=== PATIENT | female | born 1980 | race Caucasian/White ===

== ENCOUNTER 2018-06-12 04:18 | Inpatient (IN) | payer BC ==
[2018-06-12] MEDS ORDERED: Sodium Citrate/Citric Acid* 15 ML UDC PO ONE (04:24)
[2018-06-12] MEDS ORDERED: Lidocaine 1%* 5 ML VIAL ONE (04:33)
[2018-06-12 04:51] LABS: ABS Basophils 0 10^3/ul (0-0.2); ABS Eosinophils 0.2 10^3/ul (0-0.6); ABS Lymphocytes 1.5 10^3/ul (1.0-4.8); ABS Monocytes 0.6 10^3/ul (0-0.8); ABS Neutrophils 6.4 10^3/ul (1.5-7.7); ABS Nucleated RBC 0 10^3/ul; Hematocrit 37 % (35-47); Hemoglobin 12.7 g/dl (12.0-16.0); Lymphocyte % 17.1 % (25-47); Mean Corpuscular HGB Conc 34 g/dl (31-36); Mean Corpuscular Hemoglobin 32 pg (27-31); Mean Corpuscular Volume 93 fL (80-97); Mean Platelet Volume 7.4 fL (7.4-10.4); Nucleated Red Blood Cells % 0; Platelet Count 236 10^3/ul (150-450); Red Blood Count 3.98 10^6/ul (4.00-5.40); Red Cell Distribution Width 14 % (10.5-15); White Blood Count 8.7 10^3/ul (3.5-10.8)
[2018-06-12] MEDS ORDERED: Sodium Citrate/Citric Acid* 15 ML UDC ONE (04:57)
[2018-06-12] MEDS ORDERED: ceFOXitin 2 GM IVPREMIX* 2 GM/50 ML BAG ONE (04:58)
[2018-06-12] MEDS ORDERED: Naloxone* 0.4 MG/ML 1 ML VIAL IV PRN ×2 (05:29→06:57)
[2018-06-12] MEDS ORDERED: Morphine PF AMP (0.5MG/ML)* 5 MG/10 ML AMP ONE (05:36)
[2018-06-12] MEDS ORDERED: OXYTOCIN* 10 UNITS/ML 1 ML VIAL ONE (06:27)
[2018-06-12] MEDS ORDERED: Bupivacaine-MPF SPINAL* 7.5 MG/ML - 2ML AMP ONE (06:27)
[2018-06-12] MEDS ORDERED: Ondansetron INJ* 2 MG/ML VIAL IV PRN (06:57)
[2018-06-12] MEDS ORDERED: Nalbuphine* 10 MG/ML 1 ML VIAL IV PRN (06:57)
[2018-06-12] MEDS ORDERED: Dibucaine 1% 28.35 GM TUBE PR PRN (07:00)
[2018-06-12] MEDS ORDERED: Zolpidem TAB* 5 MG PO PRN (07:00)
[2018-06-12] MEDS ORDERED: Glycerin ADULT SUPP PR PRN (07:00)
[2018-06-12] MEDS ORDERED: Ibuprofen TAB* 400 MG PO SCH (07:00)
[2018-06-12] MEDS ORDERED: Witch Hazel PAD* JAR TOPICAL PRN (07:00)
[2018-06-12] MEDS ORDERED: Oxytocin in LR* 20 UNITS/1,000 ML BAG IVPB SCH (07:00)
[2018-06-12] MEDS ORDERED: ceFOXitin 2 GM IVPREMIX* 2 GM/50 ML BAG IVPB ONE (07:00)
[2018-06-12] MEDS ORDERED: oxyCODONE/Acetamin 5/325 MG* TAB ONE (07:04)
[2018-06-12] MEDS: oxyCODONE/Acetamin 5/325 MG* TAB PO PRN ×3 (07:06→22:39)
[2018-06-12] MEDS: Docusate CAP* 100 MG PO SCH ×3 (09:40→19:37)
[2018-06-12] MEDS: Simethicone TAB* 80 MG TAB.CHEW PO SCH ×4 (09:40→19:37)
[2018-06-12] MEDS: Sertraline* 100 MG TAB PO SCH (10:23)
[2018-06-12] MEDS: Ibuprofen TAB* 400 MG PO SCH ×3 (11:37→22:05)
--- NOTE | 2018-06-12 22:01 | OP ---
DATE OF OPERATION: 06/12/18 - ROOM #101 DATE OF : 82 SURGEON: Jasper Lockwood MD FITTER UP: Jeremías Noe CNM. ANESTHESIA: Spinal. PRE-OP DIAGNOSIS: Previous section, desires permanent sterilization. POST-OP DIAGNOSIS: Previous section, desires permanent sterilization. OPERATIVE PROCEDURE: Low transverse section and bilateral tubal ligation using fimbriectomy. COMPLICATIONS: None. FINDINGS: This is a 37-year-old who had a prior section for breech as well as vaginal after , after that she desired an elective repeat section. At the time of , she had normal-appearing uterus, fallopian tubes, and ovaries. She has a viable female. Apgars were 9 and 9, weight was 7 pounds 6 ounces. DESCRIPTION OF PROCEDURE: The patient identified, procedure identified as a low transverse section. The patient was taken to the operating room, prepped and draped in the usual fashion in the left lateral recumbent position under spinal anesthesia. A Pfannenstiel incision was made through the old incision, carried down through fat, fascia and peritoneum. A bladder flap was created via sharp and blunt dissection. Transverse incision was made in the lower uterine segment, extended laterally using blunt dissection. The was delivered through the incision with ease. There was a nuchal cord x1, which was looped off and the cord was doubly clamped and cut. The infant was handed to the awaiting medical lab tech instructor. Cord blood was obtained. Placenta delivered spontaneously. The uterus was wiped out with a wet lap sponge. The uterine incision was then closed using 0 Polysorb in a running fashion. A second layer was used to imbricate the first layer. Good hemostasis was verified. The right fallopian tube was grasped with a fimbriated end and cross clamped with a Janette. The tube was then ligated using 0 Polysorb in a simple fashion x2 and the fimbria was excised. Same procedure was carried out on the left, following it out to its fimbriated end. Good hemostasis was verified. The uterus was placed back into the abdominal cavity. The gutters were wiped out with a wet lap sponge. The tubal ligation sites were inspected, found to be hemostatic. The uterine incision site was also inspected, found to be hemostatic. The peritoneum was then closed using the 3-0 Polysorb in a running fashion. Good hemostasis achieved in the subrectus layers. The fascia was closed using 0 Polysorb in a running fashion. Hemostasis achieved in the subcu. Copious irrigation was utilized and suctioned out. The skin was closed with 4-0 Monocryl in a subcuticular fashion. Good hemostasis and skin was reapproximated as well with Steri-Strips and Mastisol. All sponge and instrument counts were correct. The patient returned to the recovery room in stable condition. [id number]/[facility] #: [id number] ALEKSANDER
[2018-06-12] MEDS ORDERED: oxyCODONE/Acetamin 5/325 MG* TAB PO PRN (22:57)
[2018-06-12] MEDS ORDERED: Acetaminophen TAB* 325 MG PO PRN (22:57)
[2018-06-13] MEDS: oxyCODONE/Acetamin 5/325 MG* TAB PO PRN ×5 (04:27→23:41)
[2018-06-13 06:09] LABS: ABS Basophils 0 10^3/ul (0-0.2); ABS Eosinophils 0.1 10^3/ul (0-0.6); ABS Lymphocytes 0.9 10^3/ul (1.0-4.8); ABS Monocytes 0.5 10^3/ul (0-0.8); ABS Neutrophils 8.1 10^3/ul (1.5-7.7); ABS Nucleated RBC 0 10^3/ul; Eosinophil % 1.2 % (0-6); Hematocrit 31 % (35-47); Hemoglobin 10.6 g/dl (12.0-16.0); Lymphocyte % 9.7 % (25-47); Mean Corpuscular HGB Conc 34 g/dl (31-36); Mean Corpuscular Hemoglobin 32 pg (27-31); Mean Corpuscular Volume 94 fL (80-97); Mean Platelet Volume 7.3 fL (7.4-10.4); Nucleated Red Blood Cells % 0.1; Platelet Count 201 10^3/ul (150-450); Red Blood Count 3.29 10^6/ul (4.00-5.40); Red Cell Distribution Width 14 % (10.5-15); White Blood Count 9.7 10^3/ul (3.5-10.8)
[2018-06-13] MEDS: Ibuprofen TAB* 600 MG PO PRN ×3 (08:07→23:41)
[2018-06-13] MEDS: Docusate CAP* 100 MG PO SCH ×3 (08:07→19:25)
[2018-06-13] MEDS: Simethicone TAB* 80 MG TAB.CHEW PO SCH ×4 (08:08→19:25)
[2018-06-13] MEDS: Sertraline* 100 MG TAB PO SCH (08:08)
[2018-06-13] MEDS ORDERED: Ferrous Gluconate TAB* 324 MG TAB PO SCH (09:00)
[2018-06-14] MEDS: oxyCODONE/Acetamin 5/325 MG* TAB PO PRN ×2 (03:56→22:11)
[2018-06-14] MEDS: Ibuprofen TAB* 600 MG PO PRN ×3 (05:47→20:05)
[2018-06-14] MEDS: Docusate CAP* 100 MG PO SCH ×3 (08:37→20:05)
[2018-06-14] MEDS: Simethicone TAB* 80 MG TAB.CHEW PO SCH ×4 (08:37→20:04)
[2018-06-14] MEDS: Sertraline* 100 MG TAB PO SCH (08:38)
[2018-06-15] MEDS: Ibuprofen TAB* 600 MG PO PRN (06:20)
[2018-06-15 08:02] VITALS: BP 121/71
[2018-06-15] MEDS: Docusate CAP* 100 MG PO SCH (08:26)
[2018-06-15] MEDS: Sertraline* 100 MG TAB PO SCH (08:26)
[2018-06-15] MEDS: Simethicone TAB* 80 MG TAB.CHEW PO SCH (08:26)
[2018-06-15] MEDS: oxyCODONE/Acetamin 5/325 MG* TAB PO PRN (08:57)
== END 2018-06-15 11:51 | disposition home or self-care (01) | DRG 540 ==
LOC: MCHOBOUT 04:18 → MCHOB 04:35
PROVIDERS: ADMIT Obstetrics & Gynecology; ATTEND Obstetrics & Gynecology
PROC: 4A1HXCZ Monitoring of Products of Conception, Cardiac Rate, External Approach (ICD-10-PCS; 2018-06-12)
PROC: 0UB70ZZ Excision of Bilateral Fallopian Tubes, Open Approach (ICD-10-PCS; 2018-06-12)
PROC: 10D00Z1 Extraction of Products of Conception, Low, Open Approach (ICD-10-PCS; principal; 2018-06-12 05:40)
DX: O34.211 Maternal care for low transverse scar from previous cesarean delivery (principal); O99.344 Other mental disorders complicating childbirth; F41.9 Anxiety disorder, unspecified; F32.9 Major depressive disorder, single episode, unspecified; O77.0 Labor and delivery complicated by meconium in amniotic fluid; O69.81X0 Labor and delivery complicated by cord around neck, without compression, not applicable or unspecified; Z3A.38 38 weeks gestation of pregnancy; Z37.0 Single live birth; Z88.2 Allergy status to sulfonamides; Z91.040 Latex allergy status; Z30.2 Encounter for sterilization
CPT/HCPCS: 36415; 85025; 86850; 86900; 86901; 88302; A9270-GY; J0694; J2590

== ENCOUNTER 2019-02-22 13:38 | Emergency (ER) | payer BC ==
--- NOTE | 2019-02-22 14:24 | ED ---
Neurological HPI - HPI Summary HPI Summary: A 38 y/o female accompanied by family presents to [facility] with a chief complaint of left sided facial weakness and numbness. She says that it has been getting worse over the past week with her weakness and numbness spreading into her left arm. She reports clouded vision in her left eye, but no double vision. She also reports some headaches that have been ongoing, along with some new ear pain, but she denies any rash. She says that her symptoms are worsened when she gets tired. Pt denies any fever, chills, erythema of eyes, sore throat, CP, SOB, cough, abdominal pain, N/V, dysuria, hematuria, myalgia, edema, rash, or dizziness. At triage she rated her pain as a 0/10 in severity. She says that she had a lyme test done last week which was negative. She takes a vitamin. She denies any PMHx and denies a FHx of MS. She denies any difficulties walking. Her last MRI was about 4 years ago, because she could not speak properly at the time. The patient was sent over from Dr. Wilburn. - History of Current Complaint Chief Complaint: EDNeurologicalDeficit Stated Complaint: FACIAL WEAKNESS AND NUMBNESS SENT BY DR DANIELLE CHATTERJEE Time Seen by Provider: 02/22/19 14:11 Hx Obtained From: Patient Hx Last Menstrual Period: THREE YEARS AGO Onset/Duration: Sudden Onset, Started weeks ago, Still Present Timing: Constant Onset Severity: Mild Current Severity: Mild Pain Intensity: 0 Pain Scale Used: 0-10 Numeric Character: Weak, Numbness/Tingling Aggravating: Nothing Alleviating: Nothing Associated Signs and Symptoms: Positive: Weakness, Numbness. Negative: Pain, Nausea/Vomiting, Fever, Chest Pain, Shortness of Breath - Allergy/Home Medications Allergies/Adverse Reactions: Allergies Allergy/AdvReac Type Severity Reaction Status Date / Time Sulfa (Sulfonamide Allergy Intermediate Rash Verified 06/12/18 08:11 Antibiotics) latex Allergy Rash Verified 02/22/19 13:43 Home Medications: Home Medications Calcium Carbonate CHEW TAB* [Tums*] 500 mg PO QID PRN 02/22/19 [History Confirmed 02/22/19] Cholecalciferol (Vitamin D3) [Vitamin D3] 1,000 unit PO DAILY 02/22/19 [History Confirmed 02/22/19] Multivitamins/Minerals TAB* [Theragran/minerals TAB*] 1 tab PO DAILY 02/22/19 [ History Confirmed 02/22/19] Omeprazole CAP (NF) [Prilosec CAP* 20 MG] 20 mg PO DAILY 02/22/19 [History Confirmed 02/22/19] Sertraline* [Zoloft*] 100 mg PO DAILY 02/22/19 [History Confirmed 02/22/19] PMH/Surg Hx/FS Hx/Imm Hx Endocrine/Hematology History: Denies: Hx Diabetes, Hx Thyroid Disease Cardiovascular History: Denies: Hx Hypertension Respiratory History: Denies: Hx Asthma, Hx Chronic Obstructive Pulmonary Disease (COPD) GI History: Denies: Hx Ulcer Psychiatric History: Reports: Hx Anxiety, Hx Depression - Surgical History Surgery Procedure, Year, and Place: 2010 Infectious Disease History: No Infectious Disease History: Denies: Hx Clostridium Difficile, Hx Hepatitis, Hx Human Immunodeficiency Virus (HIV), Hx of Known/Suspected MRSA, Hx Shingles, Hx Tuberculosis, Hx Known/ Suspected VRE, Hx Known/Suspected VRSA, History Other Infectious Disease, Traveled Outside the [place] in Last 30 Days - Family History Known Family History: Positive: Other - no FHx of MS - Social History Alcohol Use: Rare Substance Use Type: Reports: None Smoking Status (MU): Never Smoked Tobacco Review of Systems Negative: Fever, Chills Positive: Other - positive: clouded vision, negative: double vision. Negative: Erythema Positive: Ear Ache. Negative: Sore Throat Negative: Chest Pain Negative: Shortness Of Breath, Cough Negative: Abdominal Pain, Vomiting, Nausea Negative: dysuria, hematuria Negative: Myalgia, Edema Negative: Rash Neurological: Negative - dizziness Positive: Headache, Weakness - left sided facial, radiating to left arm, Numbness - left sided facial, radiating to left arm All Other Systems Reviewed And Are Negative: Yes Physical Exam - Summary Physical Exam Summary: Constitutional: Well-developed, Well-nourished, Alert. (-) Distressed Skin: Warm, Dry HENT: Normocephalic; Atraumatic Eyes: Conjunctiva normal Neck: Musculoskeletal ROM normal neck. (-) JVD, (-) Stridor, (-) Tracheal deviation Cardio: Rhythm regular, rate normal, Heart sounds normal; Intact distal pulses; The pedal pulses are 2+ and symmetric. Radial pulses are 2+ and symmetric. (-) Murmur Pulmonary/Chest wall: Effort normal. (-) Respiratory distress, (-) Wheezes, (-) Rales Abd: Soft. (-) Tenderness, (-) Distension, (-) Guarding, (-) Rebound Musculoskeletal: (-) Edema Lymph: (-) Cervical adenopathy Neuro: Alert, Oriented x3, left clinical advisor weakness, upper facial palsy, unable to elevate left eyebrow, smile is symmetric. Psych: Mood and affect Normal Triage Information Reviewed: Yes Vital Signs On Initial Exam: Initial Vitals Temp Pulse Resp BP Pulse Ox 99.2 F 89 18 126/88 97 02/22/19 13:39 02/22/19 13:39 02/22/19 13:39 02/22/19 13:39 02/22/19 13:39 Vital Signs Reviewed: Yes Procedures - Lumbar Puncture Midline Position: Lateral Decubitus Anesthesia Used: 1.0% Lido Spinal Needle Used: 22 Gauge Lumbar Puncture Note: Opening pressure is 13 cms of water, L4-L5 interspace, left lateral decubitus. 22 gauge 3.5 inch needle, betadine prep was used. Used 4mls of 1% lidocaine. Diagnostics - Vital Signs Vital Signs Temp Pulse Resp BP Pulse Ox 02/22/19 13:39 99.2 F 89 18 126/88 97 - Laboratory Result Diagrams: 02/22/19 15:10 02/22/19 15:10 Lab Statement: Any lab studies that have been ordered have been reviewed, and results considered in the medical decision making process. - CT Brain MRI CT Interpretation Completed By: Radiologist Summary of CT Findings: No intracranial mass or hemorrhage is noted. No abnormally enhancing lesions. are noted. ED physician has reviewed this imaging report. Re-Evaluation - Re-Evaluation First Eval Re-Evaluation Time: 18:50 Change: Unchanged Comment: Lumbar puncture procedure Course/Dx - Course Course Of Treatment: A 38 y/o female accompanied by family presents to [facility] with a chief complaint of left sided facial weakness and numbness. She says that it has been getting worse over the past week with her weakness and numbness spreading into her left arm. She reports clouded vision in her left eye , but no double vision. She also reports some headaches that have been ongoing, along with some new ear pain, but she denies any rash. She says that her symptoms are worsened when she gets tired. Pt denies any fever, chills, erythema of eyes, sore throat, CP, SOB, cough, abdominal pain, N/V, dysuria, hematuria, myalgia, edema, rash, or dizziness. At triage she rated her pain as a 0/10 in severity. She says that she had a lyme test done last week which was negative. She takes a vitamin. She denies any PMHx and denies a FHx of MS. She denies any difficulties walking. Her last MRI was about 4 years ago, because she could not speak properly at the time. The patient was sent over from Dr. Wilburn. The physical exam revealed that the patient has left clinical advisor weakness, upper facial palsy, is unable to elevate left eyebrow, smile is symmetric. Blood work and chemistries obtained and are WNL. In the ED course the patient was given Sodium Chloride IV. Brain MRI impression: No intracranial mass or hemorrhage is noted. No abnormally enhancing lesions. are noted. Lumbar puncture was done. See procedure note. CSF results are WNL. Discussed case with Dr. North, who saw the patient in the ED, and recommended having the patient follow up with him in one week. The patient will be discharged and is agreeable with this plan. - Diagnoses Provider Diagnoses: Left-sided weakness - Physician Notifications Discussed Care Of Patient With: Rohit North Time Discussed With Above Provider: 14:40 Instructed by Provider To: MD Will See In ED Discharge - Sign-Out/Discharge Documenting (check all that apply): Patient Departure - TN Patient Received Moderate/Deep Sedation with Procedure: No - Discharge Plan Condition: Stable Disposition: HOME Patient Education Materials: Weakness (ED) Referrals: Rohit North MD [Medical Doctor] - 1 Week Jacqui Wilburn MD [Primary Care Provider] - (2-3 days) Additional Instructions: RETURN TO THE EMERGENCY DEPARTMENT FOR CHANGING OR WORSENING SYMPTOMS Call Dr. North's office if your symptoms worsen. - Attestation Statements Document Initiated by Scribe: Yes Documenting Scribe: Ha Gordon Provider For Whom Scribe is Documenting (Include Credential): Lakhwinder Martinez MD Scribe Attestation: Ha Monson scribed for Lakhwinder Martinez MD on 02/22/19 at 2028. Status of Scribe Document: Ready Consult Consult: At 14:42 Discussed case with central processing technician, who recommend 24 hours of pumping and dumping the breast milk and hydration.
[2019-02-22] MEDS ORDERED: NS 0.9% 1000 ML** 1,000 ML IV ONE (14:42)
[2019-02-22 15:24] LABS: Hematocrit 43 % (35-47); Hemoglobin 14.7 g/dL (12.0-16.0); Mean Corpuscular HGB Conc 34 g/dL (31-36); Mean Corpuscular Hemoglobin 31 pg (27-31); Mean Corpuscular Volume 93 fL (80-97); Mean Platelet Volume 7.6 fL (7.4-10.4); Platelet Count 297 10^3/uL (150-450); Red Blood Count 4.68 10^6 /uL (3.70-4.87); Red Cell Distribution Width 13 % (10-15); White Blood Count 8.4 10^3/uL (3.5-10.8)
[2019-02-22 15:43] LABS: Albumin 4.9 g/dL (3.2-5.2); Albumin/Globulin Ratio 1.6 (1-3); BUN/Creatinine Ratio 21.9 (8-20); C Reactive Protein 2.42 mg/L (<8.01); Calcium 9.9 mg/dL (8.6-10.3); EGFR African American 108.5 (>60); EGFR Non-African American 89.7 (>60); Globulin 3.1 g/dL (2-4); Potassium 3.5 mmol/L (3.5-5.0); Total Bilirubin 0.5 mg/dL (0.2-1.0)
[2019-02-22] MEDS ORDERED: Gadoteridol* (CONTRAST) 279.3 MG/ML 10 ML IV ONE (16:00)
--- NOTE | 2019-02-22 16:10 | CONS ---
NEUROLOGY CONSULTATION DATE OF CONSULT: 02/22/2019 - EMERGENCY DEPT PATIENT OF: Dr. Martinez and Dr. Wilbrun. HISTORY OF PRESENT ILLNESS: This is a 38-year-old, right-handed woman. I was asked to evaluate her for focal neurological deficits. Of note, she had four years ago an episode of aphasia with a normal MRI scan. She has no headache at that time, but it was attributed to migraine at that point. She was then without any neurological symptoms and just had her third baby eight months ago. A few months after that, she developed some blurriness in her left eye. This was a monocular visual blurring that has stayed until the present time, but has not gotten worse. In the past week, she has some left ptosis and has developed in the past few days left facial droop, as well as numbness in the left cheek that has spread into her left chest and her left upper arm. She has had some weakness in the left arm as well, but no change in gait. She notes that her left hand is a little bit clumsy. She plays piano seriously recreationally and she is struggling to coordinate her left hand. She has had no fevers, chills, no rash. Her symptoms are worse when she gets tired. There is no family history for MS disease. She has had a Lyme titer done last week which was negative. She is in good general health. PAST MEDICAL HISTORY: She has a history of anxiety and depression. MEDICATIONS: Prilosec 20 mg daily and Zoloft 100 mg daily. ALLERGIES: She is ALLERGIC TO SULFA AND LATEX. FAMILY HISTORY: There is no family history for multiple sclerosis. SOCIAL HISTORY: She does not smoke, drink or use drugs. REVIEW OF SYSTEMS: Negative for all 14 spheres, other than the HPI. PHYSICAL EXAM: General: She is alert and oriented with normal speech and comprehension. Vital Signs: Temperature 99.2, pulse 89, respirations 18, blood pressure 126/88. Neurological: Cranial nerve II through XII were abnormal for a mild left facial droop. Some subjective numbness in the left face and left upper chest and arm. She had full extraocular movements. Discs were sharp bilaterally and she had some blurriness in her left eye in all underwood and her right eye was intact. 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 She had a left pronator drift that was mild. She had slight clumsiness in her left hand and manipulations, but [id number] was intact. Reflexes were 2 and equal, toes were downgoing. Neck was supple. There is no _ . Chest is clear. Cardiovascular: Regular rate and rhythm. Abdomen is soft with positive bowel sounds. DIAGNOSTIC STUDIES/LAB DATA: There are no labs currently and no other testing at this point. IMPRESSION: Chelly has a history of aphasia four years ago and monocular visual loss going on for the past couple of months time. More recently is a progressive left-sided weakness over the past several days to weeks and progressive numbness. This is not the story of a stroke-like presentation, but the multifocal nature of her complaint over time suggests something like demyelinating disease. PLAN: We are going to get an MRI scan with and without contrast and she is going to hold off for 24 hours. Depending on the results of the MRI scan, further testing may be necessary, such as a spinal tap. I discussed this with her in detail. We will be getting blood work also, the exact blood work will depend on the results of the MRI scan. Thank you for sharing her case. [id number]/[facility] #: [id number] ALEKSANDER
[2019-02-22 19:18] LABS: Body Fluid Source Cerebral Spinal
[2019-02-22 19:33] LABS: CSF Glucose 63 mg/dL (40-70)
[2019-02-22 20:44] VITALS: BP 112/77
[2019-02-24 14:59] LABS: CSF VDRL Negative (Negative)
== END 2019-02-22 20:43 | disposition home or self-care (01) ==
LOC: ED 13:38
DX: R53.1 Weakness (principal); F41.9 Anxiety disorder, unspecified; F32.9 Major depressive disorder, single episode, unspecified; Z79.899 Other long term (current) drug therapy; Z88.2 Allergy status to sulfonamides; Z91.040 Latex allergy status
CPT/HCPCS: 36415; 62270; 70553; 80053; 82945; 83916; 84157; 85027; 86140; 86592; 86618; 87070; 87205; 89051; 96360; 99283; A9579

== ENCOUNTER 2019-07-06 11:14 | Emergency (ER) | payer BC ==
[2019-07-06 13:10] VITALS: BP 109/65
--- NOTE | 2019-07-06 13:15 | UC ---
Skin Complaint HPI - HPI Summary HPI Summary: 39-year-old female presents with complaints of pain painful, burning, rash to her left back and lateral chest wall. Patient states that she started with the pain and burning 4 days ago. States pain worsens with even light touch including her clothing. 2 days ago she started breaking out in erythematous, vesicular rash to her left scapula and left lateral chest wall below her axilla. Patient has history of chickenpox as a child. Denies fever, chills, changes in soaps, detergents, lotions, cosmetics, medications, diet, or known exposure to environmental irritants. - History of Current Complaint Chief Complaint: UCSkin Time Seen by Provider: 07/06/19 13:12 Stated Complaint: SKIN COMPLAINT Hx Obtained From: Patient Hx Last Menstrual Period: 08/2017 Pain Intensity: 6 - Allergy/Home Medications Allergies/Adverse Reactions: Allergies Allergy/AdvReac Type Severity Reaction Status Date / Time Sulfa (Sulfonamide Allergy Intermediate Rash Verified 07/06/19 13:02 Antibiotics) latex Allergy Rash Verified 07/06/19 13:02 PMH/Surg Hx/FS Hx/Imm Hx Previously Healthy: Yes Psychological History: Depression - Surgical History Surgical History: Yes Surgery Procedure, Year, and Place: 2010 X2. WISDOM TEETH - Family History Known Family History: Positive: Non-Contributory - Social History Occupation: Works From/At Home Lives: With Family Alcohol Use: Rare Substance Use Type: None Smoking Status (MU): Never Smoked Tobacco - Immunization History Most Recent Influenza Vaccination: 05/2018 Most Recent Tetanus Shot: 2009 Most Recent Pneumonia Vaccination: n/a Review of Systems All Other Systems Reviewed And Are Negative: Yes Constitutional: Negative: Fever, Chills Skin: Positive: Other - See HPI Respiratory: Positive: Negative Cardiovascular: Positive: Negative Gastrointestinal: Positive: Negative Genitourinary: Positive: Negative Neurological: Positive: Negative Psychological: Positive: Negative Is Patient Immunocompromised?: No Physical Exam - Summary Physical Exam Summary: GENERAL APPEARANCE: Well developed, well nourished, alert and cooperative, and appears to be in no acute distress. EYES: Conjunctiva clear. No drainage. PERRL, EOM intact. Vision is grossly intact. EARS: External auditory canals and tympanic membranes clear, hearing grossly intact. NOSE: No nasal discharge. THROAT: Pharynx normal No tonsilar inflammation, swelling, exudate, or lesions. Uvula midline. Oral cavity normal. Teeth and gingiva in good general condition. NECK: Neck supple, non-tender without lymphadenopathy. CARDIAC: Normal S1 and S2. No S3, S4 or murmurs. Rhythm is regular. There is no peripheral edema, cyanosis or pallor. Extremities are warm and well perfused. Capillary refill is less than 2 seconds. Peripheral pulses intact. LUNGS: Clear to auscultation without rales, rhonchi, wheezing or diminished breath sounds. ABDOMEN: Positive bowel sounds. Soft, nondistended, nontender. No guarding or rebound. No masses or hepatosplenomegally. SKIN: Skin normal color, texture and turgor. Patches of tender, erythematous, vesicular, dermatomal lesions to the left scapula and left lateral chest wall. Triage Information Reviewed: Yes Vital Signs: Initial Vital Signs Temp 98.8 F 07/06/19 13:04 Pulse 86 07/06/19 13:04 Resp 17 07/06/19 13:04 BP 109/65 07/06/19 13:04 Pulse Ox 98 07/06/19 13:04 Vital Signs Reviewed: Yes Course/Dx - Course Course Of Treatment: 39-year-old female presents with complaints of pain painful, burning, rash to her left back and lateral chest wall. Patient states that she started with the pain and burning 4 days ago. States pain worsens with even light touch including her clothing. 2 days ago she started breaking out in erythematous, vesicular rash to her left scapula and left lateral chest wall below her axilla. Patient has history of chickenpox as a child. Denies fever, chills, changes in soaps, detergents, lotions, cosmetics, medications, diet, or known exposure to environmental irritants. Afebrile. Vital signs stable. Patient's exam significant for patches of tender, erythematous, vesicular, dermatomal lesions to the left scapula and left lateral chest wall consistent with herpes zoster. We'll start her on valacyclovir 1000 mg 3 times a day 7 days. She is to follow-up with her primary care provider in 3-5 days if symptoms are not improving. Anticipatory guidance and warning symptoms were reviewed with the patient. Verbalized understanding and agrees with plan of care. - Differential Diagnoses - Skin Complaint Differential Diagnoses: Cellulitis, Local Allergic Reaction, Poison [place]ika, Poison [place], Tinea, Varicella Zoster - Diagnoses Provider Diagnosis: Herpes zoster Discharge ED - Sign-Out/Discharge Documenting (check all that apply): Patient Departure All imaging exams completed and their final reports reviewed: No Studies - Discharge Plan Condition: Stable Disposition: HOME Prescriptions: Valacyclovir HCl [Valacyclovir] 1,000 mg PO TID 7 Days #21 tablet Patient Education Materials: Shingles (ED) Referrals: Jacqui Wilburn MD [Primary Care Provider] - 3 Days (Follow up in 3-5 days if no improvement in symptoms.) Additional Instructions: Your history and physical are consistent with shingles. We will start she on an antiviral medication to help minimize her symptoms and shorten the duration of symptoms. Be aware that the antiviral is not a cure for shingles. Start valacyclovir 1000 mg 3 times a day for 7 days. Be aware that if you develop blisters that begin to lose you are potentially contagious to others if they were to come in to close contact with the discharge. Pupil most at risk include persons who are unvaccinated or who have never had chickenpox, women, the elderly, or anyone who has a compromised immune system such as someone on chemotherapy. You should avoid close contact with anyone until the lesions have completely crusted over. Take acetaminophen (Tylenol) or ibuprofen (Advil, Motrin) according to directions as needed for pain. Follow-up with your primary care provider in 3-5 days if symptoms are not improving. Seek immediate medical attention if you develop fever greater than 100.5 F, have rapidly spreading redness, severe pain that is not managed with over-the- counter pain medication, or any worsening of symptoms. - Billing Disposition and Condition Condition: STABLE Disposition: Home
== END 2019-07-06 13:38 | disposition home or self-care (01) ==
LOC: UCEAST 11:14
DX: B02.9 Zoster without complications (principal); Z88.2 Allergy status to sulfonamides; Z91.040 Latex allergy status
CPT/HCPCS: 99212; G0463

== ENCOUNTER 2024-06-27 10:59 | Observation (INO) ==
[2024-06-27 11:49] LABS: ABS Eosinophils 0.3 10^3/uL (0.0-0.5); ABS Lymphocytes 0.5 10^3/uL (1.0-4.8); ABS Monocytes 0.6 10^3/uL (0.0-0.9); ABS Neutrophils 8.9 10^3/uL (1.5-7.6); Eosinophil % 2.9 %; Hematocrit 33.8 % (35-45); Hemoglobin 11.6 g/dL (11.5-14.3); Lymphocyte % 4.7 %; Mean Corpuscular Hemoglobin 31.6 pg (27-33); Mean Corpuscular Hgb Conc 34.4 g/dL (31-36); Mean Corpuscular Volume 91.8 fL (80-97); Platelet Count 469 10^3/uL (150-450); Red Blood Count 3.68 10^6/uL (3.63-4.92); Red Cell Distribution Width 12.1 % (12-17); White Blood Count 10.3 10^3/uL (3.8-11.8)
[2024-06-27 12:01] LABS: INR 1.29 (0.85-1.14)
[2024-06-27 12:13] LABS: High Sens Troponin Baseline < 3 pg/mL (<15)
[2024-06-27 12:22] LABS: ALT 15 U/L (7-52); AST 27 U/L (13-39); Albumin 3.6 g/dL (3.2-5.2); Albumin/Globulin Ratio 1.4 (1-3); Alkaline Phosphatase 61 U/L (35-149); Anion Gap 10 mmol/L (2-16); Blood Urea Nitrogen 4 mg/dL (6-24); CO2 Carbon Dioxide 24 mmol/L (22-32); Calcium 8.5 mg/dL (8.6-10.3); Chloride 100 mmol/L (101-111); Creatinine, Serum 0.56 mg/dL (0.51-0.95); Globulin 2.6 g/dL (2-4); Glucose 92 mg/dL (70-100); Potassium 4.2 mmol/L (3.5-5.0); Sodium 134 mmol/L (135-145); Total Bilirubin 0.6 mg/dL (0.2-1.0); Total Protein 6.2 g/dL (6.4-8.9); eGFR CKD-EPI 116.1 (>60)
[2024-06-27] MEDS: Albuterol/Ipratropium NEB.SOL (2.5/0.5 MG) 3 ML NEB.SOLN INH ONE (12:50)
[2024-06-27] MEDS: Dexamethasone IV 4 MG/ML VIAL 1 ml VIAL IV SLOW PU ONE (12:50)
[2024-06-27 13:21] LABS: High Sensitivity Troponin 1 Hr < 3 pg/mL (<15)
[2024-06-27] MEDS: Iohexol 350 (CONTRAST) 500 ML MDV IV ONE (16:31)
[2024-06-27] MEDS: cefTRIAXone 1 gm/50 mL D5W 1 GM/50 ML BAG IV ONE (16:36)
[2024-06-27 16:52] LABS: C Reactive Protein 109.11 mg/L (<8.01)
[2024-06-27] MEDS ORDERED: Albuterol HFA INHALER 8 gm MDI INH SCH (17:00)
[2024-06-27] MEDS: Azithromycin 500 mg/250 ml NS 500 MG/250 ML BAG IVPB ONE (17:07)
[2024-06-27] MEDS: Enoxaparin 40 MG/0.4 ML SYR SUBCUT SCH (17:17)
[2024-06-27] MEDS: DOXYcycline 100 MG in NS 0.9% 250 ml 250 ML IVPB SCH (17:42)
[2024-06-27] MEDS: Albuterol HFA INHALER 8 gm MDI INH SCH (19:48)
[2024-06-28] MEDS: DOXYcycline 100 MG in NS 0.9% 250 ml 250 ML IVPB SCH (04:26)
[2024-06-28 06:49] LABS: ABS Eosinophils 0.1 10^3/uL (0.0-0.5); ABS Lymphocytes 0.8 10^3/uL (1.0-4.8); ABS Monocytes 0.7 10^3/uL (0.0-0.9); ABS Neutrophils 6.3 10^3/uL (1.5-7.6); ABS Nucleated RBC 0.01 10^3/ul; Eosinophil % 0.7 %; Hematocrit 29.5 % (35-45); Hemoglobin 10.4 g/dL (11.5-14.3); Lymphocyte % 10.2 %; Mean Corpuscular Hemoglobin 32.4 pg (27-33); Mean Corpuscular Hgb Conc 35.1 g/dL (31-36); Mean Corpuscular Volume 92.2 fL (80-97); Mean Platelet Volume 7.2 fL (7.5-11.2); Nucleated Red Blood Cells % 0.1 %/100WBC (0.0-0.8); Platelet Count 417 10^3/uL (150-450); Red Cell Distribution Width 12.2 % (12-17); White Blood Count 7.9 10^3/uL (3.8-11.8)
[2024-06-28 07:09] LABS: Calcium 8.4 mg/dL (8.6-10.3); Creatinine, Serum 0.47 mg/dL (0.51-0.95); Magnesium 2.1 mg/dL (1.9-2.7); eGFR CKD-EPI 121.1 (>60)
[2024-06-28] MEDS: cefTRIAXone 1 gm/50 mL D5W 1 GM/50 ML BAG IV SCH (16:58)
[2024-06-28] MEDS: Albuterol HFA INHALER 8 gm MDI INH PRN (20:14)
[2024-06-29 09:15] VITALS: BP 115/70
[2024-06-29 12:03] LABS: Hematocrit 30.8 % (35-45); Hemoglobin 10.7 g/dL (11.5-14.3); Mean Corpuscular Hgb Conc 34.7 g/dL (31-36); Mean Corpuscular Volume 92.3 fL (80-97); Mean Platelet Volume 6.7 fL (7.5-11.2); Platelet Count 477 10^3/uL (150-450); Red Blood Count 3.33 10^6/uL (3.63-4.92); Red Cell Distribution Width 12.1 % (12-17); White Blood Count 10.3 10^3/uL (3.8-11.8)
== END 2024-06-29 13:10 | disposition home or self-care (01) ==
LOC: ED 10:59 → EDHOLD 10:59 → SUATTDRO 16:29 → MEDTELE 20:39
PROVIDERS: ADMIT Student in an Organized Health Care Education/Training Program; ATTEND Hospitalist